=== PATIENT | male | born 2000 | race Caucasian/White ===

== ENCOUNTER 2021-06-20 11:32 | Emergency (ER) | payer OTHER ==
[~2021-06-20] VITALS: Ht 180.3 cm; Wt 56.7 kg
[2021-06-20 11:50] VITALS: BP 123/75
== END 2021-06-20 12:43 | disposition home or self-care (01) ==
LOC: ER 11:32
DX: S61.211A Laceration without foreign body of left index finger without damage to nail, initial encounter (principal); W26.0XXA Contact with knife, initial encounter; Y93.89 Activity, other specified; Y92.89 Other specified places as the place of occurrence of the external cause; Y99.8 Other external cause status